=== PATIENT | female | born 1930 | race Caucasian/White ===

== ENCOUNTER 2017-01-21 09:37 | Emergency (ER) | payer OTHER, MEDICAID ==
--- NOTE | 2017-01-21 10:27 | DR.GENAD ---
HPI - HPI Comment HPI Comment: TUBE CAME OUT LAST NIGHT. ANDRADE CATH WAS INSERTED IN THE G-TUBE OPENING OVERNIGHT. NO VOMITING REPORTED. - Complaint/Symptoms Chief Complaint Doctors Comments: G-TUBE OUT/FOR REPLACEMEN - Nurses notes reviewed Nurses Notes Review: Yes - Source History Provided: Family Member, Senior Living - Mode of Arrival Mode of Arrival: Stretcher - Timing Came on: Suddenly - Duration Duration: Constant Duration: Hours - Severity Severity: Moderate PMH - PMH Past Medical History: Alzheimers, Anxiety, Coronary Artery Disease, Dementia, Depression, Diabetes, Dyslipidemia, GERD, Hypertension, [place], Seizures Past Surgical History: Yes Surgical History: CABG/Valve Surgery - Family History Family Medical History: Coronary Artery Disease, Hypertension - Social History Do you use any recreational Drugs:: No ROS - Review of Systems Respiratoy: No Symptoms Reported Cardiovascular: No Symptoms Reported Gastrointestinal/Abdominal: No Symptoms Reported, Other (G-TUBE OUT. ANDRADE CATH NOTED IN G-TUBE SITE.) Integumentary: Change in Color Unable to Obtain Due To: Altered mental status PE - Vital Signs Vitals: Temperature 98.1 F Pulse Rate 99 Respiratory Rate 16 Blood Pressure [Right Arm] 139/66 Blood Pressure [Right Calf] 185/76 Blood Pressure [Left Calf] 121/65 Blood Pressure [Left Arm] 136/65 Blood Pressure 138/68 O2 Sat by Pulse Oximetry 99 - General General Appearance: Alert - Eyes Eye exam: PERRL - Neck Neck Exam: Trachea Midline - Chest Chest Inspection: Symmetric Chest Wall Rise - Respiratory Respiratory Exam: Bilateral Clear to Auscultation - Abdominal Exam Abdominal Exam: Normal Bowel Sounds, Soft. negative: Tenderness Abdominal Tenderness: Other (ANDRADE CATH IN PLACE OF G-TUBE NOTED ON ABDOMINAL WALL.) - Neurologic Neurological Exam: Alert - Skin Skin Exam: Erythema MDM - Additional Information Additional Information Obtained From: Family - Differential Diagnosis Differential Diagnosis: G-TUBE PLACEMENT. Course - Treatment Treatment: G-TUBE REINSERTED IN ED WITH SIZE 24F TUBE. PLACEMENT CHECKED. - Education/Counseling Education/Counseling: Family Educated On: Diagnosis, Needs for Follow Up ROR - Labs Reviewed Laboratory Results Reviewed?: Yes - XRAY XRAY Interpreted by: Radiologist XRAY Findings: REPORT DISCUSS WITH PATIENTS FAMILY. Procedures - Additional Procedures Additional Procedures: gastric tube replacement Progress: SIZE 24F G-TUBE REPLACE IN ED AND PLACEMENT CHECKED BY KUB WITH GASTROGRAFFIN. - Diagnosis Discharge Problem: Encounter for feeding tube placement Constipation Qualifiers: Constipation type: slow transit constipation Qualified Code(s): K59.01 - Slow transit constipation - Discharge Plan Disposition: 03 XFER SNF Condition: Stable - Follow ups/Referrals Follow ups/Referrals: Robert Vidal [Primary Care Provider] - 3 days - Instructions Instructions: Care of a Feeding Tube, [id number], Gastrostomy Tube Replacement, Care After, Constipation, Adult, [id number] Additional Instructions: RETURN TO ED IF WORSE. ATTENTION DR. KRISTIAN TAVERAS XRAY REPORT.
[2017-01-21 10:50] VITALS: BP 138/68; BMI 30.2
--- NOTE | 2017-01-21 11:12 | RAD ---
HISTORY: Peg tube placement Study: Single portable view of the abdomen Comparison: 11/29/2016 Findings: There is a PEG tube again noted in the left abdomen. Nonobstructive bowel gas pattern with a large v olume of retained stool seen distally in the colon. Stable appearance of the soft tissues and osseou s structures with chronic degenerative changes and osteopenia noted. IMPRESSION: 1. PEG tube is again seen projected over the left abdomen. 2. Large volume of retained stool is seen in the rectosigmoid colon. Reported By:
== END 2017-01-21 11:34 ==
LOC: ER 09:37
PROC: 0D20XUZ Change Feeding Device in Upper Intestinal Tract, External Approach (ICD-10-PCS; principal; 2017-01-21)
DX: K59.01 Slow transit constipation (principal); Z43.1 Encounter for attention to gastrostomy; I25.810 Atherosclerosis of coronary artery bypass graft(s) without angina pectoris; R60.1 Generalized edema; E87.0 Hyperosmolality and hypernatremia; Z79.899 Other long term (current) drug therapy
CPT/HCPCS: 36415; 43760; 74000; 80053; 85025; 99282

== ENCOUNTER 2017-03-31 10:42 | Emergency (ER) | payer OTHER, MEDICAID ==
--- NOTE | 2017-03-31 11:00 | DR.GENAD ---
HPI - Complaint/Symptoms Chief Complaint Doctors Comments: Patient presents from the assisted for feeding tube placement. Th is one of several displacement by patient. PMH - PMH Past Medical History: Alzheimers, Anxiety, Coronary Artery Disease, Dementia, Depression, Diabetes, Dyslipidemia, GERD, Hypertension, [place], Seizures Past Surgical History: Yes Surgical History: CABG/Valve Surgery - Family History Family Medical History: Coronary Artery Disease, Hypertension - Social History Do you use any recreational Drugs:: No PE - Vital Signs Vitals: Blood Pressure [Right Arm] 139/66 Blood Pressure [Right Calf] 185/76 Blood Pressure [Left Calf] 121/65 Blood Pressure [Left Arm] 136/65 Blood Pressure 136/65 Course - Treatment Treatment: A 16 Belgian tube was easily replaced. KUB for tube placement obtained. - Reevaluation 1st: Improved (A) - Diagnosis Discharge Problem: Gastrostomy malfunction - Discharge Plan Condition: Stable - Follow ups/Referrals Follow ups/Referrals: Robert Vidal [Primary Care Provider] - 3 days - Instructions
[2017-03-31 11:06] VITALS: BP 112/61; BMI 21.4
--- NOTE | 2017-03-31 12:02 | RAD ---
HISTORY: Peg tube replacement Study: 03/14/2017 Comparison: None Findings: Contrast is seen injected through a PEG tube, filling the stomach and proximal small bowel. No evide nce of obstruction or gross extravasation. IMPRESSION: 1. Contrast is seen within the stomach and proximal small bowel after PEG tube injection. Reported By:
== END 2017-03-31 11:54 | disposition home or self-care (01) ==
LOC: ER 10:53
PROC: 0D20XUZ Change Feeding Device in Upper Intestinal Tract, External Approach (ICD-10-PCS; principal; 2017-03-31)
DX: K94.29 Other complications of gastrostomy (principal); Y83.3 Surgical operation with formation of external stoma as the cause of abnormal reaction of the patient, or of later complication, without mention of misadventure at the time of the procedure; Y92.129 Unspecified place in nursing home as the place of occurrence of the external cause
CPT/HCPCS: 43760; 74000; 99282; 99283

== ENCOUNTER 2017-06-05 20:57 | Emergency (ER) | payer OTHER, MEDICAID ==
--- NOTE | 2017-06-05 21:11 | DR.GENAD ---
HPI - HPI Comment HPI Comment: NOTED BY [facility] JOSE DANIEL. - Complaint/Symptoms Chief Complaint Doctors Comments: PEG TUBE OUT. - Nurses notes reviewed Nurses Notes Review: Yes - Source History Provided: [facility] - Mode of Arrival Mode of Arrival: Stretcher - Timing Came on: Suddenly - Duration Duration: Constant Duration: Hours - Severity Severity: Moderate PMH - PMH Past Medical History: Alzheimers, Anxiety, Coronary Artery Disease, Dementia, Depression, Diabetes, Dyslipidemia, GERD, Hypertension, [place], Seizures Past Surgical History: Yes Surgical History: CABG/Valve Surgery - Family History Family Medical History: Coronary Artery Disease, Hypertension - Social History Do you use any recreational Drugs:: No ROS - Review of Systems Constitutional: No Symptoms Reported Eyes: No Symptoms Reported ENTM: No Symptoms Reported Respiratoy: No Symptoms Reported Cardiovascular: No Symptoms Reported Gastrointestinal/Abdominal: Other (PEG TUBE OUT) Genitourinary: negative: Hematuria Neurological: Problems Walking (BED BOUND), Speech Problem Musculoskeletal: Back Pain Integumentary: Change in Color Hematologic/Lymphatic: Easy Bleeding, Easy Bruising PE - Vital Signs Vitals: Temperature 98.2 F Pulse Rate 74 Respiratory Rate 18 Blood Pressure [Right Arm] 139/66 Blood Pressure [Right Calf] 185/76 Blood Pressure [Left Calf] 121/65 Blood Pressure [Left Arm] 136/65 Blood Pressure 115/73 O2 Sat by Pulse Oximetry 94 - General Limitations: Other (SLIGHTLY CONFUSE, CHRONIC.) General Appearance: Alert - Head Head Exam: Normal Inspection - Eyes Eye exam: Normal Appearance - ENT ENT Exam: Normal External Ear Exam External Ear Exam: Normal External Inspection Throat Exam: Normal Inspection - Neck Neck Exam: Trachea Midline - Chest Chest Inspection: Symmetric Chest Wall Rise - Respiratory Respiratory Exam: negative: Normal Lung Sounds Bilat, Respiratory Distress Respiratory Exam: Bilateral Rhonchi, Lower Rhonchi - Cardiovascular Cardiovascular Exam: Regular Rate, Normal Rhythm, Normal Heart Sounds - Abdominal Exam Abdominal Exam: Normal Bowel Sounds, Soft. negative: Tenderness - Extremities Extremities Exam: Normal Inspection - Back Back Exam: Normal Inspection - Neurologic Neurological Exam: Alert - Skin Skin Exam: Normal Color MDM - Differential Diagnosis Differential Diagnosis: PEG TUBE MALFUNTION, Course - Treatment Treatment: SEE ORDERS. PEG TUBE REINSERTED IN ED BY NURSE. - Education/Counseling Education/Counseling: Patient Educated On: Diagnosis, Needs for Follow Up ROR - XRAY XRAY Interpreted by: Radiologist XRAY Findings: REPORT NOTED - Diagnosis Discharge Problem: PEG tube malfunction - Discharge Plan Disposition: 01 HOME, SELF-CARE Condition: Stable - Follow ups/Referrals Follow ups/Referrals: Robert Vidal [Primary Care Provider] - 2 days - Instructions Instructions: PEG Tube Home Guide, [id number] Additional Instructions: RETURN TO ED IF WORSE.
[2017-06-05 21:12] VITALS: BP 115/73; BMI 22.4
--- NOTE | 2017-06-05 21:45 | RAD ---
HISTORY: 86-year-old female for verification of percutaneous gastrostomy tube. Study: Single frontal view of the abdomen. Comparison: Abdominal radiographs April 10, 2017. Findings: Percutaneous gastrostomy tube overlies the mid abdomen and is partially opacify with contrast with co ntrast seen within multiple loops of small bowel. No visualized contrast within the stomach. There is no radiographic evidence of extraluminal contrast. IMPRESSION: 1. Opacification of multiple loops of small bowel with contrast, with no contrast visualized within the stomach or extraluminal contrast. Reported By:
== END 2017-06-05 22:12 | disposition home or self-care (01) ==
LOC: ER 21:00
PROC: 0D20XUZ Change Feeding Device in Upper Intestinal Tract, External Approach (ICD-10-PCS; principal; 2017-06-05)
DX: K94.23 Gastrostomy malfunction (principal)
CPT/HCPCS: 43760; 74000; 99282

== ENCOUNTER → 2017-08-08 | Outpatient (CLI) | payer OTHER, MEDICAID ==
--- NOTE | 2017-08-08 09:39 | RAD ---
HISTORY: G-tube placement Study: KUB Comparison: 07/13/2017 Findings: The gas pattern is unremarkable. There is a G-tube in place along the distal stomach with contrast ou tlining the gastric mucosa. There is no extravasation seen. IMPRESSION: G-tube in good position along the distal stomach otherwise, unremarkable. Reported By:
== END ==
LOC: RAD 08:33
PROVIDERS: ATTEND Internal Medicine
DX: Z43.1 Encounter for attention to gastrostomy (principal)
CPT/HCPCS: 74000

== ENCOUNTER 2017-10-31 16:57 | Emergency (ER) | payer OTHER, MEDICAID ==
[2017-10-31 17:21] VITALS: BP 116/85; BMI 22.3
--- NOTE | 2017-10-31 17:57 | DR.GENAD ---
HPI - PCP Primary Care Physician: GARY - HPI Comment HPI Comment: PATIENT FROM [facility]. - Complaint/Symptoms Chief Complaint Doctors Comments: G TUBE OUT. Chief Complaint:: [facility] STAFF STATED SHE PULLED HER GTUBED OUT AND THEY REPLACED IT WITH A ANDRADE CATH - Nurses notes reviewed Nurses Notes Review: Yes - Source History Provided: [facility] - Mode of Arrival Mode of Arrival: Stretcher - Timing Onset of Chief Complaint: 10/31/17 Came on: Suddenly - Duration Duration: Constant Duration: Hours PMH - PMH Past Medical History: Yes Past Medical History: Alzheimers, Anxiety, Coronary Artery Disease, Dementia, Depression, Diabetes, Dyslipidemia, GERD, Hypertension, [place], Seizures Past Surgical History: Yes Surgical History: CABG/Valve Surgery - Family History History of Family Medical Conditions: Yes Family Medical History: Coronary Artery Disease, Hypertension - Social History Does patient currently use any type of tobacco product: No Have you used tobacco products in the last 12 months: No Type of Tobacco Use: None Does any household member use tobacco: No Alcohol Use: None Do you use any recreational Drugs:: No Lives With: Family Lives Where: [facility] - infectious screening In the last 2 months have you had wt loss of >10#?: NO Have you had fever, night sweats or hemotysis?: No Have you traveled outside the country in the last 6 months?: No Isolation: Standard ROS - Review of Systems Constitutional: negative: Fever Eyes: negative: Eye Pain, Discharge ENTM: negative: Nose Congestion Respiratoy: negative: Short of Breath, Wheezing Cardiovascular: negative: Chest Pain Gastrointestinal/Abdominal: negative: Abdominal Pain, Nausea, Vomiting Neurological: Other (BED BOUND) Integumentary: Change in Color PE - Vital Signs Vitals: Temperature 98.9 F Pulse Rate 88 Respiratory Rate 18 Blood Pressure [Right Arm] 139/66 Blood Pressure [Right Calf] 185/76 Blood Pressure [Left Calf] 121/65 Blood Pressure [Left Arm] 136/65 Blood Pressure 116/85 O2 Sat by Pulse Oximetry 98 - General Limitations: Altered Mental Status General Appearance: Alert - Head Head Exam: Normal Inspection - Eyes Eye exam: Normal Appearance - ENT ENT Exam: Normal External Ear Exam External Ear Exam: Normal External Inspection TM/Canal Exam: Bilateral Normal Throat Exam: Normal Inspection - Neck Neck Exam: Trachea Midline - Chest Chest Inspection: Symmetric Chest Wall Rise - Respiratory Respiratory Exam: Normal Lung Sounds Bilat Respiratory Exam: Bilateral Rhonchi, Lower Rhonchi - Cardiovascular Cardiovascular Exam: Regular Rate, Normal Rhythm, Normal Heart Sounds - Abdominal Exam Abdominal Exam: Normal Bowel Sounds, Soft. negative: Distention, Tenderness - Extremities Extremities Exam: negative: Edema - Neurologic Neurological Exam: Alert - Skin Skin Exam: Erythema MDM - Differential Diagnosis Differential Diagnosis: DISLODGE G TUBE Course - Treatment Treatment: SEE ORDERS. - Education/Counseling Education/Counseling: Family Educated On: Diagnosis ROR - XRAY XRAY Interpreted by: Radiologist XRAY Findings: REPORT NOTED - Diagnosis Discharge Problem: Dislodged gastrostomy tube - Discharge Plan Disposition: 01 HOME, SELF-CARE Condition: Stable - Follow ups/Referrals Follow ups/Referrals: Robert Vidal [Primary Care Provider] - 3 days - Instructions Instructions: Care of a Feeding Tube, [id number], Gastrostomy Tube Replacement Additional Instructions: RETURN TO ED IF WORSE.
--- NOTE | 2017-10-31 18:00 | RAD ---
HISTORY: G-tube placement. Study: Single AP view the abdomen. Comparison: KUB dated August 08, 2017. Findings: Evaluation of the abdomen demonstrates a G-tube overlying the expected area of the stomach with contr ast within the stomach and small bowel. Nonobstructive bowel-gas pattern. No pathological soft tissu e mass or calcification can be observed. The bony structures are grossly intact. IMPRESSION: G tube that appears to be in good position. Reported By:
== END 2017-10-31 18:33 | disposition home or self-care (01) ==
LOC: ER 16:57
PROC: 0D20XUZ Change Feeding Device in Upper Intestinal Tract, External Approach (ICD-10-PCS; principal; 2017-10-31)
DX: K94.23 Gastrostomy malfunction (principal)
CPT/HCPCS: 43760; 74018; 99282

== ENCOUNTER 2017-11-07 07:08 | Emergency (ER) | payer OTHER, MEDICAID ==
[2017-11-07 07:32] VITALS: BP 137/63; BMI 21.4
--- NOTE | 2017-11-07 07:48 | DR.GENAD ---
HPI - PCP Primary Care Physician: GARY - HPI Comment HPI Comment: HAVE HAPPEN IN THE PAST. NO OTHER COMPLAINTS - Complaint/Symptoms Chief Complaint Doctors Comments: PEG TUBE OUT . PATIENT PULL IT OUT THIS AM. Chief Complaint:: PT. PULLED OUT PEG TUBE THIS MORNING. UPON ARRIVAL, ANDRADE CATHETER IN PLACE. - Nurses notes reviewed Nurses Notes Review: Yes - Source History Provided: Group Home - Mode of Arrival Mode of Arrival: Stretcher - Timing Onset of Chief Complaint: 11/07/17 Came on: Suddenly - Duration Duration: Since Onset Duration: Hours - Severity Severity: Moderate PMH - PMH Past Medical History: Yes Past Medical History: Alzheimers, Anxiety, Coronary Artery Disease, Dementia, Depression, Diabetes, Dyslipidemia, GERD, Hypertension, [place], Seizures Past Surgical History: Yes Surgical History: CABG/Valve Surgery Past Surgical History Comment: PEG TUBE - Family History History of Family Medical Conditions: Yes Family Medical History: Coronary Artery Disease, Hypertension - Social History Does patient currently use any type of tobacco product: No Have you used tobacco products in the last 12 months: No Type of Tobacco Use: None Does any household member use tobacco: No Alcohol Use: None Do you use any recreational Drugs:: No Lives Where: Group Home - infectious screening In the last 2 months have you had wt loss of >10#?: NO Have you had fever, night sweats or hemotysis?: No Have you traveled outside the country in the last 6 months?: No Isolation: Standard ROS - Review of Systems Constitutional: No Symptoms Reported Eyes: No Symptoms Reported ENTM: No Symptoms Reported Respiratoy: No Symptoms Reported Cardiovascular: No Symptoms Reported Gastrointestinal/Abdominal: negative: Abdominal Pain, Nausea, Vomiting Genitourinary: Other (INCONTINENCE TO URINE AND STOOL.). negative: Dysuria, Hematuria Neurological: Other (PATIENT BED BOUND. ) Musculoskeletal: Muscle Pain Integumentary: Change in Color Hematologic/Lymphatic: Easy Bleeding Endocrine: No Symptoms Reported All Other Systems: Reviewed and Negative Unable to Obtain Due To: Dementia PE - Vital Signs Vitals: Temperature 98.1 F Pulse Rate 71 Respiratory Rate 18 Blood Pressure [Right Arm] 139/66 Blood Pressure [Right Calf] 185/76 Blood Pressure [Left Calf] 121/65 Blood Pressure [Left Arm] 136/65 Blood Pressure 137/63 O2 Sat by Pulse Oximetry 96 - General Limitations: Altered Mental Status General Appearance: Alert - Head Head Exam: Normal Inspection - Eyes Eye exam: Normal Appearance - ENT ENT Exam: Normal External Ear Exam External Ear Exam: Normal External Inspection TM/Canal Exam: Bilateral Normal Nose Exam: Normal Nose Exam Mouth Exam: Normal Inspection Throat Exam: Normal Inspection - Neck Neck Exam: Trachea Midline - Chest Chest Inspection: Symmetric Chest Wall Rise - Respiratory Respiratory Exam: Normal Lung Sounds Bilat Respiratory Exam: Bilateral Wheezing, Bilateral Rhonchi, Lower Wheezing, Lower Rhonchi - Abdominal Exam Abdominal Exam: Other (PEG TUBE OUT.) - Extremities Extremities Exam: Normal Inspection - Back Back Exam: Paraspinal Tenderness - Neurologic Neurological Exam: Alert - Skin Skin Exam: Erythema MDM - Differential Diagnosis Differential Diagnosis: G TUBR REINSERTION Course - Treatment Treatment: SEE ORDERS. - Education/Counseling Education/Counseling: Patient, Education Educated On: Diagnosis ROR - XRAY XRAY Interpreted by: Radiologist XRAY Findings: REPORT NOTED. - Diagnosis Discharge Problem: Gastrostomy malfunction, PEG tube malfunction - Discharge Plan Condition: Stable - Follow ups/Referrals Follow ups/Referrals: Robert Vidal [Primary Care Provider] - 3 days - Instructions Instructions: Care of a Feeding Tube, [id number] Additional Instructions: RETURN TO ED IF WORSE.
--- NOTE | 2017-11-07 08:00 | RAD ---
HISTORY: G-tube placement Study: KUB Comparison: 10/31/2017 Technique: Water-soluble contrast was injected into the patient's G-tube and a KUB exposed. Findings: Contrast is identified within the stomach and duodenum and proximal jejunum. The G-tube is intralumin al within the body of the stomach. IMPRESSION: G tube intraluminal within the body of the stomach Reported By:
== END 2017-11-07 09:35 ==
LOC: ER 07:08
PROC: 0D20XUZ Change Feeding Device in Upper Intestinal Tract, External Approach (ICD-10-PCS; principal; 2017-11-07)
DX: K94.23 Gastrostomy malfunction (principal)
CPT/HCPCS: 43760; 74018; 99282

== ENCOUNTER 2018-09-29 09:18 | Inpatient (IN) ==
[2018-09-29] MEDS ORDERED: DUONEB 0.5 MG/3 MG ONE (09:52)
--- NOTE | 2018-09-29 09:55 | DR.SOBA ---
HPI Time Seen Time Seen by Provider: 09/29/18 09:46 PMH PMH Past Surgical History: Yes Family History Family Medical History: Coronary Artery Disease and Hypertension Social History Do you use any recreational Drugs:: No PE Vital Signs Vitals: Temperature 98.2 F Pulse Rate [Right] 86 Pulse Rate 18 Respiratory Rate 86 Blood Pressure [Right Arm] 173/74 Blood Pressure [Right Calf] 185/76 Blood Pressure [Left Calf] 121/65 Blood Pressure [Left Arm] 173/74 Blood Pressure 162/87 O2 Sat by Pulse Oximetry 96 ROR Labs Reviewed Result Diagrams: 09/29/18 10:07 09/29/18 10:07 Laboratory: 09/29/18 10:10 Sputum - Expectorated Sputum - Final WBC 12.6 X10^3/uL (3.6-10.0) H 09/29/18 10:07 RBC 4.73 X10^6/uL (3.5-5.4) 09/29/18 10:07 Hgb 14.1 g/dL (12.0-16.0) 09/29/18 10:07 Hct 42.5 % (36.0-47.0) 09/29/18 10:07 MCV 89.7 fL (80.0-100.0) 09/29/18 10:07 MCH 29.7 pg (27.0-34.0) 09/29/18 10:07 MCHC 33.1 g/dL (33.0-35.0) 09/29/18 10:07 RDW 14.0 % (11.6-16.5) 09/29/18 10:07 Plt Count 484 X10^3/uL (150.0-450.0) H 09/29/18 10:07 MPV 7.8 fL (7.4-11.0) 09/29/18 10:07 Neut % (Auto) 86.7 % (42.0-75.0) H 09/29/18 10:07 Lymph % (Auto) 8.3 % (21.0-51.0) L 09/29/18 10:07 [place] % (Auto) 4.4 % (0.0-13.0) 09/29/18 10:07 Eos % (Auto) 0.3 % (0.9-2.9) L 09/29/18 10:07 Baso % (Auto) 0.3 % (0.2-1.0) 09/29/18 10:07 Neut # (Auto) 11.0 x10^3/uL (2.2-4.8) H 09/29/18 10:07 Lymph # (Auto) 1.1 X10^3/uL (1.3-2.9) L 09/29/18 10:07 [place] # (Auto) 0.6 x10^3/uL (0.3-0.8) 09/29/18 10:07 Eos # (Auto) 0.0 x10^3/uL (0.0-0.2) 09/29/18 10:07 Baso # (Auto) 0.0 X10^3/uL (0.0-0.1) 09/29/18 10:07 Absolute Nucleated RBC 0.1 /100WBC 09/29/18 10:07 Sample Site Rr 09/29/18 10:18 ABG pH 7.450 (7.35-7.45) 09/29/18 10:18 ABG pCO2 44.0 mmHg (35.0-45.0) 09/29/18 10:18 ABG pO2 103.0 mmHg (80.0-100.0) H 09/29/18 10:18 ABG HCO3 30.6 mmol/L (22-26) H* 09/29/18 10:18 ABG O2 Saturation 98.0 % (90-100) 09/29/18 10:18 ABG Base Excess 5.8 mmol/L (-2.0-2.0) H 09/29/18 10:18 James Test Pos 09/29/18 10:18 A-a Gradient 42.0 mmHg 09/29/18 10:18 FiO2 28.0 09/29/18 10:18 Blood Gas Comments Pt lilo well. cdn 09/29/18 10:18 Sodium 139 mmol/L (136-145) 09/29/18 10:07 Corrected Sodium 141 mmol/L (136-145) 09/29/18 10:07 Potassium 4.5 mmol/L (3.5-5.1) 09/29/18 10:07 Chloride 101 mmol/L (98-107) 09/29/18 10:07 Carbon Dioxide 25.9 mmol/L (21-32) 09/29/18 10:07 BUN 22 mg/dL (7-18) H 09/29/18 10:07 Creatinine 0.84 mg/dL (0.55-1.02) 09/29/18 10:07 Est GFR (MDRD) Af Amer > 60 (>60) 09/29/18 10:07 Est GFR (MDRD) Non-Af > 60 (>60) 09/29/18 10:07 Glucose 171 mg/dL (65-99) H 09/29/18 10:07 Lactic Acid 1.3 mmol/L (0.4-2.0) 09/29/18 10:07 Calcium 9.6 mg/dL (8.5-10.1) 09/29/18 10:07 Corrected Calcium 10.4 mg/dL (8.5-10.1) H 09/29/18 10:07 Total Bilirubin 0.20 mg/dL (0.2-1.0) 09/29/18 10:07 AST 30 Units/L (15-37) 09/29/18 10:07 ALT 32 Units/L (12-78) 09/29/18 10:07 Alkaline Phosphatase 102 Units/L (46-116) 09/29/18 10:07 Creatine Kinase 75 Units/L (26-192) 09/29/18 10:07 CK-MB (CK-2) 3.0 ng/mL (0-4.0) 09/29/18 10:07 CK/CKMB % Calc 4.0 % (<4) 09/29/18 10:07 Troponin I < 0.02 ng/mL (0-1.5) 09/29/18 10:07 Total Protein 8.1 g/dL (6.4-8.2) 09/29/18 10:07 Albumin 3.0 g/dL (3.4-5.0) L 09/29/18 10:07 Globulin 5.1 g/dL (2.5-4.5) H 09/29/18 10:07 Albumin/Globulin Ratio 0.6 Ratio (1.1-2.1) L 09/29/18 10:07
[2018-09-29] MEDS: DUONEB 0.5 MG/3 MG NEB ONE ×2 (10:05→10:11)
--- NOTE | 2018-09-29 10:07 | RAD ---
HISTORY: Shortness of breath Study: Single-view chest Comparison: September 25, 2018 Findings: The patient rotated. The cardiac silhouette is unremarkable. Coarse interstitial fibrotic changes are seen both lungs. Infiltrate is suspected within the left lower lobe. A small left-sided pleural effusion excluded. IMPRESSION: 1. Coarse interstitial and fibrotic changes with suspected left basilar infiltrate and/or small effusion. Reported By:
[2018-09-29 10:23] LABS: ABG BASE EXCESS 5.8 mmol/L (-2.0-2.0)
[2018-09-29 10:24] LABS: ABG ALLEN TEST POS; ABG HCO3 30.6 mmol/L (22-26)
[2018-09-29 10:31] LABS: BASOPHILS % (AUTO) 0.3 % (0.2-1.0); EOSINOPHILS % (AUTO) 0.3 % (0.9-2.9); HEMATOCRIT 42.5 % (36.0-47.0); HEMOGLOBIN 14.1 g/dL (12.0-16.0); LYMPHOCYTES # (AUTO) 1.1 X10^3/uL (1.3-2.9); LYMPHOCYTES % (AUTO) 8.3 % (21.0-51.0); MEAN CORPUSCULAR HEMOGLOBIN 29.7 pg (27.0-34.0); MEAN CORPUSCULAR HGB CONC 33.1 g/dL (33.0-35.0); MEAN CORPUSCULAR VOLUME 89.7 fL (80.0-100.0); MEAN PLATELET VOLUME 7.8 fL (7.4-11.0); MONOCYTES # (AUTO) 0.6 x10^3/uL (0.3-0.8); MONOCYTES % (AUTO) 4.4 % (0.0-13.0); NEUTROPHILS % (AUTO) 86.7 % (42.0-75.0); PLATELET COUNT 484 X10^3/uL (150.0-450.0); RED BLOOD COUNT 4.73 X10^6/uL (3.5-5.4); WHITE BLOOD COUNT 12.6 X10^3/uL (3.6-10.0)
[2018-09-29 10:42] LABS: BLOOD UREA NITROGEN 22 mg/dL (7-18); CALCIUM 9.6 mg/dL (8.5-10.1); CARBON DIOXIDE 25.9 mmol/L (21-32); CHLORIDE 101 mmol/L (98-107); COR NA(FOR HYPERGLY) 141 mmol/L (136-145); CREATININE 0.84 mg/dL (0.55-1.02); SODIUM 139 mmol/L (136-145); TROPONIN I < 0.02 ng/mL (0-1.5); eGFR NON BLACK RACES > 60 (>60)
[2018-09-29 10:47] LABS: ALANINE AMINOTRANSFERASE 32 Units/L (12-78); ALKALINE PHOSPHATASE 102 Units/L (46-116); ASPARTATE AMINO TRANSFERASE 30 Units/L (15-37); COR CA(FOR HYPOALB) 10.4 mg/dL (8.5-10.1); CREATINE KINASE 75 Units/L (26-192); TOTAL PROTEIN 8.1 g/dL (6.4-8.2)
[2018-09-29] MEDS ORDERED: FORTAZ or TAZICEF VIAL INJ IVP ONE (12:52)
[2018-09-29] MEDS ORDERED: FORTAZ or TAZICEF VIAL INJ ONE (13:55)
[2018-09-29 15:36] VITALS: BMI 16.9
[2018-09-29] MEDS ORDERED: NS 1/2 1000 ML IV 1,000 ML IV ONE (15:43)
[2018-09-29] MEDS ORDERED: NS 250 ML IV 250 ML IV ONE (15:43)
[2018-09-29] MEDS ORDERED: ROBITUSSIN DM ONE (15:43)
[2018-09-29] MEDS ORDERED: ZITHROMAX INJ 500 MG VIAL IV ONE (15:43)
[2018-09-29 16:16] LABS: BILIRUBIN,URINE NEGATIVE (NEGATIVE); BLOOD/HEMOGLOBIN,URINE 4+ (NEGATIVE); GLUCOSE, URINE NEGATIVE (NEGATIVE); KETONES,URINE NEGATIVE (NEGATIVE); LEUKOCYTE ESTERASE ,URINE 1+ (NEGATIVE); NITRITES,URINE NEGATIVE (NEGATIVE); PROTEIN,URINE 2+ (NEGATIVE); UROBILINOGEN,URINE NORMAL (NORMAL)
[2018-09-29] MEDS: NS 1/2 1000 ML IV 1,000 ML IV SCH (16:21)
[2018-09-29] MEDS: ZITHROMAX INJ 500 MG VIAL 500 MG in NS 250 ML IV 250 ML IV SCH (16:21)
[2018-09-29] MEDS: ROBITUSSIN DM PO SCH ×2 (16:22→20:04)
[2018-09-29 16:30] LABS: APPEARANCE,URINE CLEAR (CLEAR); COLOR,URINE YELLOW (YELLOW)
[2018-09-29 16:36] LABS: BACTERIA,URINE TRACE /HPF (NEGATIVE); SQUAMOUS EPITHELIAL CELL,UR FEW /HPF (NEGATIVE)
[2018-09-29 16:37] LABS: GRANULAR CASTS,URINE FEW /LPF (NEGATIVE)
[2018-09-29] MEDS: DUONEB 0.5 MG/3 MG NEB SCH ×2 (17:05→20:11)
[2018-09-29] MEDS: FORTAZ or TAZICEF VIAL INJ IVP SCH (21:01)
[2018-09-30] MEDS: DUONEB 0.5 MG/3 MG NEB SCH ×6 (00:27→21:20)
[2018-09-30] MEDS: FORTAZ or TAZICEF VIAL INJ IVP SCH ×3 (05:28→21:05)
[2018-09-30] MEDS: NS 1/2 1000 ML IV 1,000 ML IV SCH (05:29)
[2018-09-30 06:07] LABS: BASOPHILS % (AUTO) 0.5 % (0.2-1.0); EOSINOPHILS # (AUTO) 0.3 x10^3/uL (0.0-0.2); EOSINOPHILS % (AUTO) 2.8 % (0.9-2.9); HEMATOCRIT 38.1 % (36.0-47.0); HEMOGLOBIN 12.8 g/dL (12.0-16.0); LYMPHOCYTES % (AUTO) 22.6 % (21.0-51.0); MEAN CORPUSCULAR HEMOGLOBIN 30.1 pg (27.0-34.0); MEAN CORPUSCULAR HGB CONC 33.5 g/dL (33.0-35.0); MEAN CORPUSCULAR VOLUME 89.7 fL (80.0-100.0); MEAN PLATELET VOLUME 7.7 fL (7.4-11.0); MONOCYTES # (AUTO) 0.7 x10^3/uL (0.3-0.8); MONOCYTES % (AUTO) 7.3 % (0.0-13.0); NEUTROPHILS % (AUTO) 66.8 % (42.0-75.0); PLATELET COUNT 433 X10^3/uL (150.0-450.0); RED BLOOD COUNT 4.25 X10^6/uL (3.5-5.4)
[2018-09-30 06:31] LABS: ALANINE AMINOTRANSFERASE 32 Units/L (12-78); ALBUMIN 2.6 g/dL (3.4-5.0); ALKALINE PHOSPHATASE 84 Units/L (46-116); ASPARTATE AMINO TRANSFERASE 31 Units/L (15-37); BLOOD UREA NITROGEN 28 mg/dL (7-18); CALCIUM 9.1 mg/dL (8.5-10.1); CARBON DIOXIDE 33.1 mmol/L (21-32); CHLORIDE 105 mmol/L (98-107); COR CA(FOR HYPOALB) 10.2 mg/dL (8.5-10.1); CREATININE 0.86 mg/dL (0.55-1.02); SODIUM 145 mmol/L (136-145); TOTAL PROTEIN 7.1 g/dL (6.4-8.2); eGFR NON BLACK RACES > 60 (>60)
[2018-09-30] MEDS: ROBITUSSIN DM PO SCH ×4 (08:35→20:30)
[2018-09-30] MEDS: ZITHROMAX INJ 500 MG VIAL 500 MG in NS 250 ML IV 250 ML IV SCH (08:35)
[2018-09-30] MEDS: ALBUMIN HUMAN 25%- 100 ML 100 ML IV SCH (16:01)
[2018-09-30] MEDS: PROCALAMINE 3 % 1,000 ML IV SCH (17:16)
[2018-10-01] MEDS: DUONEB 0.5 MG/3 MG NEB SCH ×6 (01:18→21:23)
--- NOTE | 2018-10-01 05:12 | RAD ---
Chest, one view Indication: Shortness of breath Comparison: 09/29/2018 Findings: The heart is stable in size. The lungs are hypoinflated with coarsened interstitial fibrotic changes, most significant within the left lung base, unchanged. No definite acute infiltrates are identified. There is no significant pleural effusion or pneumothorax. No acute osseous abnormality. Impression: Stable chronic interstitial lung changes. Reported By:
[2018-10-01] MEDS: FORTAZ or TAZICEF VIAL INJ IVP SCH ×3 (05:32→21:20)
[2018-10-01 06:09] LABS: BASOPHILS # (AUTO) 0.1 X10^3/uL (0.0-0.1); BASOPHILS % (AUTO) 0.6 % (0.2-1.0); EOSINOPHILS # (AUTO) 0.4 x10^3/uL (0.0-0.2); EOSINOPHILS % (AUTO) 4.8 % (0.9-2.9); HEMATOCRIT 35.9 % (36.0-47.0); LYMPHOCYTES # (AUTO) 1.8 X10^3/uL (1.3-2.9); LYMPHOCYTES % (AUTO) 19.8 % (21.0-51.0); MEAN CORPUSCULAR HEMOGLOBIN 29.9 pg (27.0-34.0); MEAN CORPUSCULAR HGB CONC 33.3 g/dL (33.0-35.0); MEAN CORPUSCULAR VOLUME 89.8 fL (80.0-100.0); MEAN PLATELET VOLUME 7.6 fL (7.4-11.0); MONOCYTES # (AUTO) 0.7 x10^3/uL (0.3-0.8); MONOCYTES % (AUTO) 7.4 % (0.0-13.0); NEUTROPHILS % (AUTO) 67.4 % (42.0-75.0); PLATELET COUNT 386 X10^3/uL (150.0-450.0); RED CELL DISTRIBUTION WIDTH 14.2 % (11.6-16.5); WHITE BLOOD COUNT 8.9 X10^3/uL (3.6-10.0)
[2018-10-01 06:25] LABS: ALANINE AMINOTRANSFERASE 30 Units/L (12-78); ALBUMIN 3.2 g/dL (3.4-5.0); ALKALINE PHOSPHATASE 77 Units/L (46-116); ASPARTATE AMINO TRANSFERASE 25 Units/L (15-37); BLOOD UREA NITROGEN 21 mg/dL (7-18); CALCIUM 9.2 mg/dL (8.5-10.1); CARBON DIOXIDE 28.7 mmol/L (21-32); CHLORIDE 108 mmol/L (98-107); COR CA(FOR HYPOALB) 9.8 mg/dL (8.5-10.1); CREATININE 0.67 mg/dL (0.55-1.02); SODIUM 145 mmol/L (136-145); TOTAL PROTEIN 7.3 g/dL (6.4-8.2); eGFR NON BLACK RACES > 60 (>60)
[2018-10-01] MEDS: ROBITUSSIN DM PO SCH ×4 (08:57→20:17)
[2018-10-01] MEDS: ZITHROMAX INJ 500 MG VIAL 500 MG in NS 250 ML IV 250 ML IV SCH (08:57)
[2018-10-01] MEDS: ALBUMIN HUMAN 25%- 100 ML 100 ML IV SCH (08:57)
--- NOTE | 2018-10-01 12:48 | DR.H&P ---
H&P - History & Physical for Day of: H&P Date: 09/29/18 - Chief Complaint Chief Complaint: COUGH, SOB - History of Present Illness History of Present Illness: IS A 87 YEAR OLD PATIENT OF OURS WHO IS A RESIDENT OF [facility]. SHE PRESENTED TO THE HOSPITAL WITH COMPLAINTS OF COUGH, FEVER, AND SHORTNESS OF BREATH. SYMPTOMS REPORTEDLY STARTED A WEEK AGO AND HAS PROGRESSIVELY GOTTEN WORSE. SHE HAD A PEG TUBE PLACED ON 09/23/[address] RANGEL. STAFF REPORTS THAT THE PEG TUBE IS DRAINING AROUND THE INSERTION SITE. ON ARRIVAL, VITALS WERE 96.5-96-18-97%-162/87. LABS WERE OBTAINED. ABNORMAL LAB VALUES INCLUDE THE FOLLOWING: WBC 12.6, PLT COUNT 484, BUN 22, GLUCOSE 171, ALBUMIN 3.0, GLOBULIN 5.1. ABG OBTAINED AND REVEALED: PH 7.450, PC02 44.0, P02 30.6, 02 SATURATION 98.0, BASE EXCESS 5.8. URINALYSIS REVEALED: WBC 3-5, RBC 3-5, BACTERIA TRACE, LEUKOCYTES 1+. BLOOD AND SPUTUM CULTURES PENDING. A CHEST XRAY WAS OBTAINED AND REVEALED: Coarse interstitial and fibrotic changes with suspected left basilar infiltrate and/or small effusion. SHE WAS ADMITTED TO THE HOSPITAL FOR FURTHER EVALUATION AND TREATMENT OF PNEUMONIA. SHE WAS GIVEN FORTAZ 1GM IV S 1 DOSE IN THE ER WELL A DUONEB. SHE WAS STARTED ON THE PNEUMONIA PROTOCOL WITH ZITHROMAX 500MG IV DAILY. WE PLAN TO FOLLOW UP WITH AM LABS AND CHEST XRAY AND CONTINUE TO MONITOR. - Past Medical History Past Medical History: Alzheimers, Anxiety, Coronary Artery Disease, Dementia, Depression, Diabetes, Dyslipidemia, GERD, Hypertension, MD, Seizures Additional Medical History: Osteoporosis, Urinary Tract Infections, Pernicious Anemia - Past Surgical History Surgical History: Tonsillectomy - Family History Family Medical History: MD, Sudden Cardiac , Hypertension - Social History Does patient currently use any type of tobacco product: No Have you used tobacco products in the last 12 months: No Type of Tobacco Use: Cigarettes Does any household member use tobacco: No Alcohol Use: None Drug Use: None - Medications Home Medications: No Known Drug Allergies Allergy (Verified 10/31/17 16:59) CONTINUE taking the following medications omeprazole 20 mg FEEDING TUBE DAILY 09/29/18 [History] - Review of Systems Constitutional: Fever, Chills, Sweats Eyes: No Symptoms Reported ENT: No Symptoms Reported Respiratory: See HPI, Cough, Shortness of Breath, Wheezing Cardiovascular: No Symptoms Reported Gastrointestinal: No Symptoms Reported Genitourinary: No Symptoms Reported Musculoskeletal: No Symptoms Reported Skin: No Symptoms Reported - Physical Exam Vital Signs: Temperature 97.5 F Pulse Rate [Right] 86 Pulse Rate 73 Respiratory Rate 24 Blood Pressure [Right Arm] 136/83 Blood Pressure [Right Calf] 185/76 Blood Pressure [Left Calf] 121/65 Blood Pressure [Left Arm] 173/74 Blood Pressure 129/58 O2 Sat by Pulse Oximetry 100 Oriented: Unable to test Eyes: Normal Ear: Normal Nose: Normal Throat: Normal Respiratory: Diminished Throughout, Wheezes Throughout Cardiovascular: Normal : Normal Auscultation: Bowel Sounds: Normal Palpation: Normal Tenderness: Normal Skin: Normal Musculoskeletal: Normal Psychiatric: Agitation Mood Description: Anxious Affect: Anxious Speech Pattern: Aphasic - Assessment/Plan (1) Pneumonia Qualifiers: Pneumonia type: due to unspecified organism Laterality: left Lung location: lower lobe of lung Qualified Code(s): J18.1 - Lobar pneumonia, unspecified organism Status: Acute Plan: PNEUMONIA PROTOCOL, RESPIRATORY TREATMENTS, SUPPLEMENTAL OXYGEN, CONTINUE TO MONITOR. - Allergies Allergies/Adverse Reactions: Allergies Allergy/AdvReac Type Severity Reaction Status Date / Time No Known Drug Allergies Allergy Verified 10/31/17 16:59
[2018-10-01] MEDS: PROCALAMINE 3 % 1,000 ML IV SCH (22:10)
[2018-10-02] MEDS: DUONEB 0.5 MG/3 MG NEB SCH ×4 (01:30→12:11)
[2018-10-02] MEDS: FORTAZ or TAZICEF VIAL INJ IVP SCH (05:25)
--- NOTE | 2018-10-02 06:17 | RAD ---
Chest, one view Indication: Shortness of breath Comparison: 10/01/2018 Findings: The heart is stable in size. The lungs are again hypoinflated with stable coarsened interstitial fibrotic changes, most significant within the left lung base. No significant pleural effusion or pneumothorax is identified. There is no acute osseous abnormality. Impression: Chronic interstitial lung changes, unchanged since prior exam. No new abnormality. Reported By:
[2018-10-02 06:22] LABS: BASOPHILS % (AUTO) 0.4 % (0.2-1.0); EOSINOPHILS # (AUTO) 0.4 x10^3/uL (0.0-0.2); EOSINOPHILS % (AUTO) 4.4 % (0.9-2.9); HEMOGLOBIN 12.2 g/dL (12.0-16.0); LYMPHOCYTES # (AUTO) 1.8 X10^3/uL (1.3-2.9); LYMPHOCYTES % (AUTO) 22.2 % (21.0-51.0); MEAN CORPUSCULAR HEMOGLOBIN 29.9 pg (27.0-34.0); MEAN CORPUSCULAR VOLUME 90.6 fL (80.0-100.0); MEAN PLATELET VOLUME 7.6 fL (7.4-11.0); MONOCYTES # (AUTO) 0.6 x10^3/uL (0.3-0.8); MONOCYTES % (AUTO) 7.8 % (0.0-13.0); NEUTROPHILS # (AUTO) 5.1 x10^3/uL (2.2-4.8); NEUTROPHILS % (AUTO) 65.2 % (42.0-75.0); PLATELET COUNT 356 X10^3/uL (150.0-450.0); RED BLOOD COUNT 4.08 X10^6/uL (3.5-5.4); RED CELL DISTRIBUTION WIDTH 14.1 % (11.6-16.5); WHITE BLOOD COUNT 7.9 X10^3/uL (3.6-10.0)
[2018-10-02 06:33] LABS: ALANINE AMINOTRANSFERASE 20 Units/L (12-78); ALBUMIN 3.5 g/dL (3.4-5.0); ALKALINE PHOSPHATASE 70 Units/L (46-116); ASPARTATE AMINO TRANSFERASE 21 Units/L (15-37); BLOOD UREA NITROGEN 18 mg/dL (7-18); CALCIUM 9.3 mg/dL (8.5-10.1); CARBON DIOXIDE 26.1 mmol/L (21-32); CHLORIDE 108 mmol/L (98-107); CREATININE 0.59 mg/dL (0.55-1.02); SODIUM 144 mmol/L (136-145); TOTAL PROTEIN 7.3 g/dL (6.4-8.2); eGFR NON BLACK RACES > 60 (>60)
--- NOTE | 2018-10-02 08:35 | PCM.PROG ---
Progress Note - Progress Note for Day of Date of Exam: 09/30/18 - Subjective Subjective: WAS ADMITTED FOR LEFT LOWER LOBE PNEUMONIA. TODAY, SHE IS ALERT AND ORIENTED, LYING IN BED ON MORNING ROUNDS. SHE CONTINUES WITH COUGH AND LABORED BREATHING. SLIGHTLY IMPROVED SINCE ADMISSION. HER PEG TUBE CONTINUES TO DRAIN AROUND SITE. ON EXAMINATION, HEART IS REGULAR IN RATE AND RHYTHM. BILATERAL LUNGS CONTINUE WITH SCATTERED WHEEZING. ABDOMEN IS FLAT, SOFT, AND NON-TENDER WITH HYPOACTIVE BOWEL SOUNDS NOTED. PEG TUBE NOTED. DRESSING IS NOTED WITH DRAINAGE. HER VITALS THIS MORNING ARE 98.2-89-26-99%-96/64. LABS WERE OBTAINED. ABNORMAL LAB VALUES INCLUDE THE FOLLOWING: CARBON DIOXIDE 33.1, BUN 28, ALBUMIN 2.6. BLOOD AND SPUTUM CULTURES ARE PENDING. SHE IS CURRENTLY RECEIVING FORTAZ IV AND AZITHROMYCIN IV WELL RESPIRATORY TREATMENTS. WE WILL CONTINUE WITH CURRENT PLAN OF CARE TODAY AND START PROCALAMINE AT 40ML/HR AND ALBUMIN 25% IV DAILY. OTHERWISE, WE WILL FOLLOW UP WITH AM LABS AND CONTINUE TO MONITOR. - Past Medical Family Social History Past Med/Fam/Surg Hx: No changes since H&P Allergies: Allergies No Known Drug Allergies Allergy (Verified 10/31/17 16:59) - Review of Systems ROS: No change since H&P - Vital Signs and I&O's Vital Signs: Temperature 98.8 F Pulse Rate [Right] 86 Pulse Rate 84 Respiratory Rate 27 Blood Pressure [Right Arm] 136/83 Blood Pressure [Right Calf] 185/76 Blood Pressure [Left Calf] 121/65 Blood Pressure [Left Arm] 173/74 Blood Pressure 158/67 O2 Sat by Pulse Oximetry 100 Intake and Output: Intake & Output 09/29/18 09/30/18 10/01/18 10/02/18 11:59 11:59 11:59 11:59 Intake Total 1295 / 1295 1495 / 1495 1182 / 1182 Output Total 850 / 850 975 / 975 750 / 750 Balance 445 / 445 520 / 520 432 / 432 - Physical Exam Oriented: Unable to test Eyes: Normal Ear: Normal Nose: Normal Throat: Normal Respiratory: Generalized, Wheezes Cardiovascular: Normal : Normal Auscultation: Bowel Sounds: Normal Palpation: Normal Tenderness: Normal Skin: Normal Musculoskeletal: Normal Psychiatric: Agitation Mood Description: Anxious Affect: Anxious Speech Pattern: Unclear, Inappropriate - Laboratory and Diagnostics Result Diagrams: 10/02/18 05:20 10/02/18 05:20 Labs: 09/29/18 10:10 Blood Blood Culture - Preliminary 09/29/18 10:07 Blood Blood Culture - Preliminary 09/29/18 10:10 Sputum - Expectorated Sputum Sputum Culture - Final Pseudomonas Aeruginosa 09/29/18 10:10 Sputum - Expectorated Sputum - Final Laboratory WBC 7.9 X10^3/uL (3.6-10.0) 10/02/18 05:20 RBC 4.08 X10^6/uL (3.5-5.4) 10/02/18 05:20 Hgb 12.2 g/dL (12.0-16.0) 10/02/18 05:20 Hct 37.0 % (36.0-47.0) 10/02/18 05:20 MCV 90.6 fL (80.0-100.0) 10/02/18 05:20 MCH 29.9 pg (27.0-34.0) 10/02/18 05:20 MCHC 33.0 g/dL (33.0-35.0) 10/02/18 05:20 RDW 14.1 % (11.6-16.5) 10/02/18 05:20 Plt Count 356 X10^3/uL (150.0-450.0) 10/02/18 05:20 MPV 7.6 fL (7.4-11.0) 10/02/18 05:20 Neut % (Auto) 65.2 % (42.0-75.0) 10/02/18 05:20 Lymph % (Auto) 22.2 % (21.0-51.0) 10/02/18 05:20 Desha % (Auto) 7.8 % (0.0-13.0) 10/02/18 05:20 Eos % (Auto) 4.4 % (0.9-2.9) H 10/02/18 05:20 Baso % (Auto) 0.4 % (0.2-1.0) 10/02/18 05:20 Neut # (Auto) 5.1 x10^3/uL (2.2-4.8) H 10/02/18 05:20 Lymph # (Auto) 1.8 X10^3/uL (1.3-2.9) 10/02/18 05:20 Desha # (Auto) 0.6 x10^3/uL (0.3-0.8) 10/02/18 05:20 Eos # (Auto) 0.4 x10^3/uL (0.0-0.2) H 10/02/18 05:20 Baso # (Auto) 0.0 X10^3/uL (0.0-0.1) 10/02/18 05:20 Absolute Nucleated RBC 0.0 /100WBC 10/02/18 05:20 INR Target Range - 10/01/18 05:30 INR 1.07 (0.8-1.3) 10/01/18 05:30 Sample Site Rr 09/29/18 10:18 ABG pH 7.450 (7.35-7.45) 09/29/18 10:18 ABG pCO2 44.0 mmHg (35.0-45.0) 09/29/18 10:18 ABG pO2 103.0 mmHg (80.0-100.0) H 09/29/18 10:18 ABG HCO3 30.6 mmol/L (22-26) H* 09/29/18 10:18 ABG O2 Saturation 98.0 % (90-100) 09/29/18 10:18 ABG Base Excess 5.8 mmol/L (-2.0-2.0) H 09/29/18 10:18 James Test Pos 09/29/18 10:18 A-a Gradient 42.0 mmHg 09/29/18 10:18 FiO2 28.0 09/29/18 10:18 Blood Gas Comments Pt lilo well. cdn 09/29/18 10:18 Sodium 144 mmol/L (136-145) 10/02/18 05:20 Corrected Sodium TNP 10/02/18 05:20 Potassium 4.1 mmol/L (3.5-5.1) 10/02/18 05:20 Chloride 108 mmol/L (98-107) H 10/02/18 05:20 Carbon Dioxide 26.1 mmol/L (21-32) 10/02/18 05:20 BUN 18 mg/dL (7-18) 10/02/18 05:20 Creatinine 0.59 mg/dL (0.55-1.02) 10/02/18 05:20 Est GFR (MDRD) Af Amer > 60 (>60) 10/02/18 05:20 Est GFR (MDRD) Non-Af > 60 (>60) 10/02/18 05:20 Glucose 88 mg/dL (65-99) 10/02/18 05:20 Lactic Acid 1.3 mmol/L (0.4-2.0) 09/29/18 10:07 Calcium 9.3 mg/dL (8.5-10.1) 10/02/18 05:20 Corrected Calcium TNP 10/02/18 05:20 Total Bilirubin 0.30 mg/dL (0.2-1.0) 10/02/18 05:20 AST 21 Units/L (15-37) 10/02/18 05:20 ALT 20 Units/L (12-78) 10/02/18 05:20 Alkaline Phosphatase 70 Units/L (46-116) 10/02/18 05:20 Creatine Kinase 75 Units/L (26-192) 09/29/18 10:07 CK-MB (CK-2) 3.0 ng/mL (0-4.0) 09/29/18 10:07 CK/CKMB % Calc 4.0 % (<4) 09/29/18 10:07 Troponin I < 0.02 ng/mL (0-1.5) 09/29/18 10:07 Total Protein 7.3 g/dL (6.4-8.2) 10/02/18 05:20 Albumin 3.5 g/dL (3.4-5.0) 10/02/18 05:20 Globulin 3.8 g/dL (2.5-4.5) 10/02/18 05:20 Albumin/Globulin Ratio 0.9 Ratio (1.1-2.1) L 10/02/18 05:20 Specimen Type Catherized urine 09/29/18 16:07 Urine Color Yellow (YELLOW) 09/29/18 16:07 Urine Appearance Clear (CLEAR) 09/29/18 16:07 Urine pH 6.0 (5.0 - 8.0) 09/29/18 16:07 Ur Specific [place] 1.020 (1.000-1.030) 09/29/18 16:07 Urine Protein 2+ (NEGATIVE) 09/29/18 16:07 Urine Glucose (UA) Negative (NEGATIVE) 09/29/18 16:07 Urine Ketones Negative (NEGATIVE) 09/29/18 16:07 Urine Occult Blood 4+ (NEGATIVE) 09/29/18 16:07 Urine Nitrite Negative (NEGATIVE) 09/29/18 16:07 Urine Bilirubin Negative (NEGATIVE) 09/29/18 16:07 Urine Urobilinogen Normal (NORMAL) 09/29/18 16:07 Ur Leukocyte Esterase 1+ (NEGATIVE) 09/29/18 16:07 Urine RBC 3-5 /HPF (NONE SEEN) 09/29/18 16:07 Urine WBC 3-5 /HPF (NONE SEEN) 09/29/18 16:07 Ur Squamous Epith Cells Few /HPF (NEGATIVE) 09/29/18 16:07 Urine Bacteria Trace /HPF (NEGATIVE) 09/29/18 16:07 Granular Casts Few /LPF (NEGATIVE) 09/29/18 16:07 Ur Culture Indicated? No/not indicated 09/29/18 16:07 - Plan (1) Pneumonia Status: Acute Qualifiers: Pneumonia type: due to unspecified organism Laterality: left Lung location: lower lobe of lung Qualified Code(s): J18.1 - Lobar pneumonia, unspecified organism Plan: PNEUMONIA PROTOCOL, RESPIRATORY TREATMENTS, SUPPLEMENTAL OXYGEN, CONTINUE TO MONITOR. (2) Hypoproteinemia Status: Acute Plan: PROCALAMINE IV AND ALBUMIN IV, CONTINUE TO MONITOR
[2018-10-02] MEDS ORDERED: PHARMACY CONSULT - DOSE _____ XX SCH (09:00)
[2018-10-02] MEDS: ROBITUSSIN DM PO SCH ×2 (09:20→12:59)
[2018-10-02] MEDS: ALBUMIN HUMAN 25%- 100 ML 100 ML IV SCH (09:20)
[2018-10-02 15:02] VITALS: BP 161/72
[2018-10-02] MEDS ORDERED: MERREM VIAL IVP SCH (21:00)
== END 2018-10-02 15:15 | DRG 194 ==
LOC: ER 09:18 → ICU 14:04
PROVIDERS: ADMIT Internal Medicine; ATTEND Internal Medicine
DX: E78.2 Mixed hyperlipidemia; R06.02 Shortness of breath; I25.10 Atherosclerotic heart disease of native coronary artery without angina pectoris; F32.89 Other specified depressive episodes; K21.9 Gastro-esophageal reflux disease without esophagitis; R94.31 Abnormal electrocardiogram [ECG] [EKG]; B96.89 Other specified bacterial agents as the cause of diseases classified elsewhere; Z43.1 Encounter for attention to gastrostomy; F41.8 Other specified anxiety disorders; G30.8 Other Alzheimer's disease; J18.8 Other pneumonia, unspecified organism; R06.03 Acute respiratory distress; E11.65 Type 2 diabetes mellitus with hyperglycemia; G40.89 Other seizures
CPT/HCPCS: 36415; 36600; 71010; 71045; 80053; 81001; 82550; 82553; 82803; 83605; 84484; 85025; 85610; 87040; 87070; 87077; 87186; 87205; 93005; 94640; 96365; 96374; 99282; 99284; A4222; B5200; P9047; J0456; J0713; J2185; J7050; J7620

== ENCOUNTER 2018-11-24 05:50 | Inpatient (IN) ==
[2018-11-24] MEDS ORDERED: ADRENALINE CHL INJ (ABBOJECT) IVP ONE ×6 (05:54→06:14)
[2018-11-24] MEDS ORDERED: SODIUM BICARBONATE 8.4% INJ ADULT IVP ONE (06:05)
[2018-11-24] MEDS ORDERED: ATROPINE SULFATE ABBOJECT IVP ONE (06:09)
--- NOTE | 2018-11-24 06:38 | DR.CA ---
HPI Time Seen Time Seen by Provider: 11/24/18 05:50 Complaint Chief Complaint Doctor Comments: 87 y/o female resident at [facility], brought into ED by [facility] staff in cardiac arrest. Reportedly, she was about to be fed and was noted apneic. That staff went for help and upon return pt. was unresponsive. CPR was started over there en-route to the ED. Reviewed Nurses Notes Review: Yes PMH PMH Past Surgical History: Yes Family History Family Medical History: VA, Sudden Cardiac and Hypertension Social History Do you use any recreational Drugs:: No ROS Review of Systems Constitutional: Other (Unresponsive) PE Vitals Vital Signs: Temp Pulse Pulse Resp BP BP BP 11/24/18 12:45 96 H 13 11/24/18 12:30 105 H 22 11/24/18 12:15 105 H 21 11/24/18 12:00 98.4 F 88 19 11/24/18 11:45 95 H 22 11/24/18 11:30 99 H 22 11/24/18 11:15 97 H 23 11/24/18 11:03 98 H 24 108/79 11/24/18 11:00 98 H 24 11/24/18 10:45 101 H 24 11/24/18 10:30 100 H 17 11/24/18 10:15 101 H 21 11/24/18 10:00 101 H 16 72/51 11/24/18 09:45 101 H 12 11/24/18 09:30 101 H 12 71/51 11/24/18 09:15 100 H 12 11/24/18 09:01 101 H 12 82/42 11/24/18 09:00 101 H 12 11/24/18 08:52 102 H 15 58/41 11/24/18 08:46 104 H 12 75/47 11/24/18 08:45 104 H 12 11/24/18 08:37 108 H 11/24/18 08:20 104 H 12 11/24/18 08:00 104 H 12 70/47 11/24/18 07:41 107 H 12 68/50 11/24/18 07:34 109 H 12 11/24/18 06:17 159 H 11/24/18 06:11 56 L 0 L 11/24/18 06:08 0 L 0 L 11/24/18 06:06 0 L 0 L 11/24/18 06:02 31 L 0 L 11/24/18 05:57 0 L 0 L 11/24/18 05:50 0 L 0 L 10/02/18 15:00 161/72 09/29/18 15:02 09/29/18 12:30 173/74 09/17/14 08:00 03/01/14 00:00 121/65 BP BP Pulse Ox 11/24/18 12:45 11/24/18 12:30 11/24/18 12:15 73 L 11/24/18 12:00 71 L 11/24/18 11:45 70 L 11/24/18 11:30 72 L 11/24/18 11:15 87 L 11/24/18 11:03 11/24/18 11:00 79 L 11/24/18 10:45 87 L 11/24/18 10:30 83 L 11/24/18 10:15 91 L 11/24/18 10:00 93 L 11/24/18 09:45 94 L 11/24/18 09:30 94 L 11/24/18 09:15 95 11/24/18 09:01 96 11/24/18 09:00 96 11/24/18 08:52 95 11/24/18 08:46 95 11/24/18 08:45 98 11/24/18 08:37 11/24/18 08:20 73/49 88 L 11/24/18 08:00 87 L 11/24/18 07:41 92 L 11/24/18 07:34 92 L 11/24/18 06:17 148/93 100 11/24/18 06:11 107/39 0 L 11/24/18 06:08 92/33 0 L 11/24/18 06:06 100/39 0 L 11/24/18 06:02 69/45 0 L 11/24/18 05:57 60/37 11/24/18 05:50 0 L 10/02/18 15:00 09/29/18 15:02 136/83 09/29/18 12:30 09/17/14 08:00 185/76 03/01/14 00:00 General Limitations: Altered Mental Status General Appearance: Other (Unresponsive) Head Head Exam: Normal Inspection, Atraumatic and Normocephalic Eyes Eye exam: Normal Appearance Eyes: Pupils: Fixed ENT ENT Exam: Normal Oropharynx and Mucous Membranes Moist Airway Airway: Patent and Intubated ET tube placement confirmed by: Visualization, Exam and ETCO2 Gag: Absent Neck Neck Exam: Normal Inspection and Trachea Midline Chest Chest Inspection: Normal Inspection Respiratory Ventilation: Assisted Respiratory Exam: Bilateral: Rhonchi Cardiovascular Cardiovascular Exam: Other (no cardiac activity) Abdominal Exam Abdominal Exam: Normal Inspection Extremities Extremities Exam: Normal Inspection Neurologic Neurological Exam: Other (unresponsive) Skin Skin Exam: Other (abrasions over the knees ) ROR Labs Reviewed Result Diagrams: 11/24/18 05:50 11/24/18 05:50 Laboratory: WBC 24.9 X10^3/uL (3.6-10.0) H 11/24/18 05:50 RBC 5.33 X10^6/uL (3.5-5.4) 11/24/18 05:50 Hgb 15.7 g/dL (12.0-16.0) 11/24/18 05:50 Hct 50.2 % (36.0-47.0) H 11/24/18 05:50 MCV 94.2 fL (80.0-100.0) 11/24/18 05:50 MCH 29.4 pg (27.0-34.0) 11/24/18 05:50 MCHC 31.3 g/dL (33.0-35.0) L 11/24/18 05:50 RDW 15.4 % (11.6-16.5) 11/24/18 05:50 Plt Count 315 X10^3/uL (150.0-450.0) 11/24/18 05:50 Plt Count Comment Adequate (ADEQUATE) 11/24/18 05:50 MPV 9.4 fL (7.4-11.0) 11/24/18 05:50 Neut % (Auto) 82.6 % (42.0-75.0) H 11/24/18 05:50 Lymph % (Auto) 6.5 % (21.0-51.0) L 11/24/18 05:50 Callahan % (Auto) 10.6 % (0.0-13.0) 11/24/18 05:50 Eos % (Auto) 0.1 % (0.9-2.9) L 11/24/18 05:50 Baso % (Auto) 0.2 % (0.2-1.0) 11/24/18 05:50 Neut # (Auto) 20.5 x10^3/uL (2.2-4.8) H 11/24/18 05:50 Lymph # (Auto) 1.6 X10^3/uL (1.3-2.9) 11/24/18 05:50 Callahan # (Auto) 2.6 x10^3/uL (0.3-0.8) H 11/24/18 05:50 Eos # (Auto) 0.0 x10^3/uL (0.0-0.2) 11/24/18 05:50 Baso # (Auto) 0.1 X10^3/uL (0.0-0.1) 11/24/18 05:50 Absolute Nucleated RBC 0.1 /100WBC 11/24/18 05:50 Total Counted 100 11/24/18 05:50 Neutrophils % (Manual) 82 % (39-76) H 11/24/18 05:50 Band Neutrophils % 5 % (0-10) 11/24/18 05:50 Lymphocytes % (Manual) 7 % (13-43) L 11/24/18 05:50 Monocytes % (Manual) 6 % (4-9) 11/24/18 05:50 Plt Morphology Comment Normal (NORMAL) 11/24/18 05:50 RBC Morphology Normal (NORMAL) 11/24/18 05:50 Sodium 142 mmol/L (136-145) 11/24/18 05:50 Corrected Sodium 146 mmol/L (136-145) H 11/24/18 05:50 Potassium 4.6 mmol/L (3.5-5.1) 11/24/18 05:50 Chloride 100 mmol/L (98-107) 11/24/18 05:50 Carbon Dioxide 25.7 mmol/L (21-32) 11/24/18 05:50 BUN 30 mg/dL (7-18) H 11/24/18 05:50 Creatinine 1.49 mg/dL (0.55-1.02) H 11/24/18 05:50 Est GFR (MDRD) Af Amer 43 (>60) L 11/24/18 05:50 Est GFR (MDRD) Non-Af 35 (>60) L 11/24/18 05:50 Glucose 253 mg/dL (65-99) H 11/24/18 05:50 Calcium 9.6 mg/dL (8.5-10.1) 11/24/18 05:50 Corrected Calcium TNP 11/24/18 05:50 Total Bilirubin 0.30 mg/dL (0.2-1.0) 11/24/18 05:50 AST 43 Units/L (15-37) H 11/24/18 05:50 ALT 30 Units/L (12-78) 11/24/18 05:50 Alkaline Phosphatase 103 Units/L (46-116) 11/24/18 05:50 Total Protein 8.1 g/dL (6.4-8.2) 11/24/18 05:50 Albumin 3.7 g/dL (3.4-5.0) 11/24/18 05:50 Globulin 4.4 g/dL (2.5-4.5) 11/24/18 05:50 Albumin/Globulin Ratio 0.8 Ratio (1.1-2.1) L 11/24/18 05:50 Diagnosis Discharge Problem: Cardiac arrest
[2018-11-24 06:48] LABS: BASOPHILS # (AUTO) 0.1 X10^3/uL (0.0-0.1); BASOPHILS % (AUTO) 0.2 % (0.2-1.0); EOSINOPHILS % (AUTO) 0.1 % (0.9-2.9); HEMATOCRIT 50.2 % (36.0-47.0); HEMOGLOBIN 15.7 g/dL (12.0-16.0); LYMPHOCYTES # (AUTO) 1.6 X10^3/uL (1.3-2.9); LYMPHOCYTES % (AUTO) 6.5 % (21.0-51.0); MEAN CORPUSCULAR HEMOGLOBIN 29.4 pg (27.0-34.0); MEAN CORPUSCULAR HGB CONC 31.3 g/dL (33.0-35.0); MEAN CORPUSCULAR VOLUME 94.2 fL (80.0-100.0); MEAN PLATELET VOLUME 9.4 fL (7.4-11.0); MONOCYTES # (AUTO) 2.6 x10^3/uL (0.3-0.8); MONOCYTES % (AUTO) 10.6 % (0.0-13.0); NEUTROPHILS # (AUTO) 20.5 x10^3/uL (2.2-4.8); NEUTROPHILS % (AUTO) 82.6 % (42.0-75.0); PLATELET COUNT 315 X10^3/uL (150.0-450.0); RED BLOOD COUNT 5.33 X10^6/uL (3.5-5.4); RED CELL DISTRIBUTION WIDTH 15.4 % (11.6-16.5); WHITE BLOOD COUNT 24.9 X10^3/uL (3.6-10.0)
--- NOTE | 2018-11-24 06:52 | RAD ---
HISTORY: ET tube placement Study: Chest AP portable Comparison: 10/02/2018 Findings: There is an endotracheal tube with its tip in the right mainstem bronchus. Retraction of 5.5 cm is recommended. The heart is within normal limits in size. The jose j are normal. The lungs are free of acute alveolar infiltrates. Interstitial lung changes are present bilaterally most prominent in the left lung base. IMPRESSION: Endotracheal tube tip right mainstem bronchus. Retraction of 5.5 cm is recommended for further evaluation Stable interstitial lung changes Reported By:
[2018-11-24 06:55] LABS: ALANINE AMINOTRANSFERASE 30 Units/L (12-78); ALBUMIN 3.7 g/dL (3.4-5.0); ALKALINE PHOSPHATASE 103 Units/L (46-116); ASPARTATE AMINO TRANSFERASE 43 Units/L (15-37); BLOOD UREA NITROGEN 30 mg/dL (7-18); CALCIUM 9.6 mg/dL (8.5-10.1); CARBON DIOXIDE 25.7 mmol/L (21-32); CHLORIDE 100 mmol/L (98-107); COR NA(FOR HYPERGLY) 146 mmol/L (136-145); CREATININE 1.49 mg/dL (0.55-1.02); SODIUM 142 mmol/L (136-145); TOTAL PROTEIN 8.1 g/dL (6.4-8.2); eGFR NON BLACK RACES 35 (>60)
[2018-11-24 06:59] LABS: BAND NEUTROPHILS % 5 % (0-10); PLATELET MORPHOLOGY COMMENT NORMAL (NORMAL)
[2018-11-24] MEDS ORDERED: ADRENALINE CHL INJ (ABBOJECT) ONE (09:35)
[2018-11-24] MEDS ORDERED: SODIUM BICARBONATE 8.4% INJ ADULT ONE (09:36)
[2018-11-24] MEDS ORDERED: ATROPINE SULFATE ABBOJECT ONE (09:36)
[2018-11-24 09:45] VITALS: BMI 14.8
[2018-11-24 13:05] VITALS: BP 108/79
== END 2018-11-24 13:45 | disposition expired | DRG 298 ==
LOC: ER 06:05 → ICU 07:34
PROVIDERS: ADMIT Internal Medicine; ATTEND Internal Medicine
DX: I46.9 Cardiac arrest, cause unspecified; Z66 Do not resuscitate; I10 Essential (primary) hypertension; R40.4 Transient alteration of awareness
CPT/HCPCS: 31500; 36415; 71010; 71045; 80053; 85025; 92950; 94002; 96365; 96374; 96375; 99285; 99291; 99292; A4618; J0171; J0461; J3490